=== PATIENT | male | born 1980 | race Caucasian/White ===

== ENCOUNTER 2022-04-14 16:27 | Emergency (ER) | payer MEDICARE, OTHER ==
[2022-04-14] MEDS ORDERED: SODIUM CHLORIDE 0.9% 1,000 ML IV ONE (16:34)
--- NOTE | 2022-04-14 16:44 | ED ---
General Adult HPI - General Chief complaint: Headache Stated complaint: HEADACHE Time Seen by Provider: 04/14/22 16:32 Source: patient, EMS Mode of arrival: EMS - History of Present Illness Initial comments: This is a 41-year-old male with a past medical history including previous brain cancer status post resection multiple years ago presents emergency department via EMS for a headache. The patient stated that he has had chronic intermittent headaches over last several years and was supposed to see his neurologist for follow-up approximately 3 years ago but has not done so. The patient stated that he has had headaches involving the pain going from the base of his cervical spine up across his head to his nose. The patient did state that he had an episode of this earlier today lasting approximately 3 minutes associated with some intermittent blurry vision for the same amount of time. The patient stated that this all improved the time EMS did arrive. On arrival to the emergency department, the patient stated that he denied of any acute pain or complaints but did admit to drinking all earlier today. The patient was pleasant and did not complain of any other pain. The patient is an overall poor historian however and cannot provide any further details about his past medical history. The patient was resting in bed comfortably. - Related Data Allergies Allergy/AdvReac Type Severity Reaction Status Date / Time acetaminophen [From Vicodin] Allergy Rash/Hives Verified 04/14/22 16:34 hydrocodone [From Vicodin] Allergy Rash/Hives Verified 04/14/22 16:34 Penicillins Allergy Rash/Hives Verified 04/14/22 16:34 Review of Systems ROS Statement: Those systems with pertinent positive or pertinent negative responses have been documented in the HPI. ROS Other: All systems not noted in ROS Statement are negative. General Exam Limitations: no limitations General appearance: alert, in no apparent distress Head exam: Present: atraumatic, normocephalic, normal inspection Eye exam: Present: normal appearance, PERRL Pupils: Present: normal accommodation ENT exam: Present: normal exam, normal oropharynx, mucous membranes moist Neck exam: Present: normal inspection, full ROM Respiratory exam: Present: normal lung sounds bilaterally Cardiovascular Exam: Present: regular rate, normal rhythm, normal heart sounds GI/Abdominal exam: Present: soft, normal bowel sounds Extremities exam: Present: normal inspection, full ROM Back exam: Present: normal inspection, full ROM Neurological exam: Present: alert, oriented X3, CN II-XII intact Psychiatric exam: Present: normal affect, normal mood Skin exam: Present: warm, dry Course Vital Signs 04/14/22 16:29 Temperature 98.6 F Pulse Rate 80 Respiratory 20 Rate Blood Pressure 138/92 O2 Sat by Pulse 100 Oximetry Medical Decision Making - Medical Decision Making Was pt. sent in by a medical professional or institution (ANA Luque, [employer]O LEAD, urgent care, hospital, or [facility]...) When possible be specific @ -No Did you speak to anyone other than the patient for history (EMS, parent, family, police, friend...)? What history was obtained from this source @ -No Did you review nursing and triage notes (agree or disagree)? Why? @ -I reviewed and agree with nursing and triage notes Were old charts reviewed (outside hosp., previous admission, EMS record, old EKG, old radiological studies, urgent care reports/EKG's, [facility] records)? Report findings @ -No old charts were reviewed Differential Diagnosis (chest pain, altered mental status, abdominal pain women, abdominal pain men, vaginal bleeding, weakness, fever, dyspnea, syncope, headache, dizziness, GI bleed, back pain, seizure, CVA, palpatations, mental health)? @ -Acute intracranial neoplasm, headache, NOS, migraine EKG interpreted by me (3pts min.). @ -None X-rays interpreted by me (1pt min.). @ -None done CT interpreted by me (1pt min.). @ -CT of the head was obtained and was interpreted by myself showing large left frontal lobe encephalomalacia and previous surgery. There is no acute intracranial abnormality noted. U/S interpreted by me (1pt. min.). @ -None done What testing was considered but not performed or refused? (CT, X-rays, U/S, labs)? Why? @ -None What meds were considered but not given or refused? Why? @ -None Did you discuss the management of the patient with other professionals (professionals i.e. ANA Luque, PMO LEAD, lab, RT, psych nurse, high school social studies teacher, detention deputy, teacher, parking officer, renal case manager)? Give summary @ -No Was smoking cessation discussed for >3mins.? @ -Yes Was critical care preformed (if so, how long)? @ -No Were there social determinants of health that impacted care today? How? (Homelessness, low income, unemployed, alcoholism, drug addiction, transportation, low edu. Level, literacy, decrease access to med. care, shelter, rehab)? @ -No Was there de-escalation of care discussed even if they declined (Discuss DNR or withdrawal of care, Hospice)? DNR status @ -No What co-morbidities impacted this encounter? (DM, HTN, Smoking, COPD, CAD, Cancer, CVA, ARF, Chemo, Hep., AIDS, mental health diagnosis, sleep apnea, morbid obesity)? @ -Previous brain cancer status post resection Was patient admitted / discharged? Hospital course, mention meds given and route, prescriptions, significant lab abnormalities, going to OR and other pertinent info. @ -The patient was seen and evaluated in emergency department. Physical exam, the patient was resting in bed comfortably. Vital signs were stable. All laboratory workup was negative. CT head did not show any signs of any acute abdomen maladies. On reevaluation, the patient stated that he was hungry and denied of any acute pain or headaches. The patient was deemed stable for discharge and told to follow-up with his neurologist as he was previously told however he needed to follow-up and find his information in order to find the neurosurgeon. The patient had all of his questions answered appropriately and was discharged home in stable condition. Undiagnosed new problem with uncertain prognosis? @ -No Drug Therapy requiring intensive monitoring for toxicity (Heparin, Nitro, Insulin, Cardizem)? @ -No Were any procedures done? @ -No Diagnosis/symptom? @ -Headache, NOS Acute, or Chronic, or Acute on Chronic? @ -Acute on chronic Uncomplicated (without systemic symptoms) or Complicated (systemic symptoms)? @ -Uncomplicated Side effects of treatment? @ -No Exacerbation, Progression, or Severe Exacerbation? @ -No Poses a threat to life or bodily function? How? (Chest pain, [place], [place], pneumonia, PE, COPD, DKA, ARF, appy, cholecystitis, CVA, Diverticulitis, Homicidal, Suicidal, threat to staff... and all critical care pts) @ -No - Lab Data Result diagrams: 04/14/22 16:36 04/14/22 16:36 Lab Results 04/14/22 04/14/22 Range/Units 16:36 16:36 WBC 4.6 (3.8-10.6) k/uL RBC 5.07 (4.30-5.90) m/uL Hgb 16.2 (13.0-17.5) gm/dL Hct 48.9 (39.0-53.0) % MCV 96.6 (80.0-100.0) fL MCH 31.9 (25.0-35.0) pg MCHC 33.1 (31.0-37.0) g/dL RDW 13.5 (11.5-15.5) % Plt Count 160 (150-450) k/uL MPV 8.1 Neutrophils % 61 % Lymphocytes % 26 % Monocytes % 8 % Eosinophils % 1 % Basophils % 2 % Neutrophils # 2.8 (1.3-7.7) k/uL Lymphocytes # 1.2 (1.0-4.8) k/uL Monocytes # 0.4 (0-1.0) k/uL Eosinophils # 0.1 (0-0.7) k/uL Basophils # 0.1 (0-0.2) k/uL Sodium 140 (137-145) mmol/L Potassium 4.5 (3.5-5.1) mmol/L Chloride 103 (98-107) mmol/L Carbon Dioxide 27 (22-30) mmol/L Anion Gap 10 mmol/L BUN 11 (9-20) mg/dL Creatinine 0.96 (0.66-1.25) mg/dL Est GFR (CKD-EPI)AfAm >90 (>60 ml/min/1.73 sqM) Est GFR (CKD-EPI)NonAf >90 (>60 ml/min/1.73 sqM) Glucose 83 (74-99) mg/dL Calcium 9.5 (8.4-10.2) mg/dL Magnesium 2.3 (1.6-2.3) mg/dL Total Bilirubin 0.6 (0.2-1.3) mg/dL AST 33 (17-59) U/L ALT 32 (4-49) U/L Alkaline Phosphatase 62 (38-126) U/L Total Protein 7.2 (6.3-8.2) g/dL Albumin 4.6 (3.5-5.0) g/dL Serum Alcohol 52 mg/dL Disposition Clinical Impression: Headache Disposition: HOME SELF-CARE Condition: Stable Instructions (If sedation given, give patient instructions): Acute Headache (ED) Is patient prescribed a controlled substance at d/c from ED?: No Referrals: None,Stated [Primary Care Provider] - 1-2 days Time of Disposition: 17:50
[2022-04-14 17:06] LABS: Basophils # (A) 0.1 k/uL (0-0.2); Basophils % (A) 2 %; Eosinophils # (A) 0.1 k/uL (0-0.7); Eosinophils % (A) 1 %; HCT 48.9 % (39.0-53.0); HGB 16.2 gm/dL (13.0-17.5); Lymphocytes # (A) 1.2 k/uL (1.0-4.8); Lymphocytes % (A) 26 %; MCH 31.9 pg (25.0-35.0); MCHC 33.1 g/dL (31.0-37.0); MCV 96.6 fL (80.0-100.0); Mean Platelet Volume 8.1; Monocytes # (A) 0.4 k/uL (0-1.0); Monocytes % (A) 8 %; Neutrophils # (A) 2.8 k/uL (1.3-7.7); Neutrophils % (A) 61 %; Platelet Count 160 k/uL (150-450); RBC 5.07 m/uL (4.30-5.90); RDW 13.5 % (11.5-15.5); WBC 4.6 k/uL (3.8-10.6)
[2022-04-14 17:13] LABS: ALT 32 U/L (4-49); AST 33 U/L (17-59); African American GFR (CKD) >90 (>60 ml/min/1.73 sqM); Albumin 4.6 g/dL (3.5-5.0); Alcohol 52 mg/dL; Alkaline Phosphatase 62 U/L (38-126); Anion Gap 10 mmol/L; Blood Urea Nitrogen 11 mg/dL (9-20); Calcium 9.5 mg/dL (8.4-10.2); Carbon Dioxide 27 mmol/L (22-30); Chloride 103 mmol/L (98-107); Glucose 83 mg/dL (74-99); Magnesium 2.3 mg/dL (1.6-2.3); Non-African American GFR(CKD) >90 (>60 ml/min/1.73 sqM); Potassium 4.5 mmol/L (3.5-5.1); Sodium 140 mmol/L (137-145); Total Bilirubin 0.6 mg/dL (0.2-1.3); Total Protein 7.2 g/dL (6.3-8.2)
--- NOTE | 2022-04-14 17:53 | CT ---
EXAMINATION TYPE: CT brain wo con DATE OF EXAM: 04/14/2022 COMPARISON: None HISTORY: Headache, hx brain ca CT DLP: 1143.4 mGycm Automated exposure control for dose reduction was used. Images of the brain obtained without contrast. There is 5 cm area of fluid hypodensity in the left frontal lobe bass and white matter consistent wit h encephalomalacia. There is no mass effect or midline shift. No sign of intracranial hemorrhage. Edmond tricles have fairly normal size. There is left frontal craniotomy defect. The skull base is intact. IMPRESSION: Large left frontal lobe encephalomalacia and previous surgery. No acute intracranial abnormality.
[2022-04-14 18:23] VITALS: BP 116/98; PULSE 54; RESP 19; TEMP 98.3
== END 2022-04-14 18:23 | disposition home or self-care (01) ==
LOC: EC 16:27
DX: R51.9 Headache, unspecified (principal); G93.89 Other specified disorders of brain; Z88.0 Allergy status to penicillin; Z88.5 Allergy status to narcotic agent
CPT/HCPCS: 36415; 80053; 83735; 85025; 70450; 99285; G0480; 80320

== ENCOUNTER 2022-06-21 11:45 | Emergency (ER) | payer MEDICARE, OTHER ==
--- NOTE | 2022-06-21 12:34 | ED ---
General Adult HPI - General Chief complaint: Skin/Abscess/Foreign Body Stated complaint: Facial swelling/bump Time Seen by Provider: 06/21/22 12:08 Source: patient, RN notes reviewed Mode of arrival: ambulatory Limitations: no limitations - History of Present Illness Initial comments: Patient is a pleasant 41-year-old male presenting to emergency department with concerns for left facial swelling. Onset of symptoms was 3-4 days ago. Patient does have history of occasional cysts in different spots. Patient does have discomfort associated with this. No fever. No visual change. No eye pain. - Related Data Previous Rx's Medication Instructions Recorded Cephalexin [Keflex] 500 mg PO QID #40 cap 06/21/22 Allergies Allergy/AdvReac Type Severity Reaction Status Date / Time acetaminophen [From Vicodin] Allergy Rash/Hives Verified 06/21/22 11:52 hydrocodone [From Vicodin] Allergy Rash/Hives Verified 06/21/22 11:52 Penicillins Allergy Rash/Hives Verified 06/21/22 11:52 Review of Systems ROS Statement: Those systems with pertinent positive or pertinent negative responses have been documented in the HPI. ROS Other: All systems not noted in ROS Statement are negative. Constitutional: Denies: fever Eyes: Denies: eye pain ENT: Reports: as per HPI. Denies: ear pain Respiratory: Denies: cough Cardiovascular: Denies: chest pain Endocrine: Denies: fatigue Gastrointestinal: Denies: abdominal pain Skin: Reports: as per HPI Past Medical History Past Medical History: Cancer, COPD Additional Past Medical History / Comment(s): brain tumor History of Any Multi-Drug Resistant Organisms: None Reported Additional Past Surgical History / Comment(s): brain surgery Past Psychological History: No Psychological Hx Reported Smoking Status: Current every day smoker Past Alcohol Use History: Rare Past Drug Use History: Marijuana General Exam Limitations: no limitations General appearance: alert, in no apparent distress Head exam: Present: normocephalic Eye exam: Present: normal appearance, PERRL ENT exam: Present: normal oropharynx, other (Left maxillary region near the nose with approximately 2 x 2 centimeter area of erythema and swelling with central pustule) Neck exam: Present: normal inspection Respiratory exam: Present: normal lung sounds bilaterally Cardiovascular Exam: Present: regular rate, normal rhythm GI/Abdominal exam: Present: soft. Absent: tenderness Extremities exam: Present: normal inspection Neurological exam: Present: alert Psychiatric exam: Present: normal affect, normal mood Skin exam: Present: erythema (Left medial maxillary region near the nares with central pustule) Course Vital Signs 06/21/22 11:47 Temperature 97.6 F Pulse Rate 72 Respiratory 20 Rate Blood Pressure 147/94 O2 Sat by Pulse 99 Oximetry Procedures - Incision & Drainage Consent Obtained: verbal consent Indication: Abscess Site: face Anesthetic Used: lidocaine 1% Amount (mLs): 2 I&D Cleaning Method: Betadine Scalpel Used: #11 I&D Drainage Obtained: Pus (3-4cc) Culture Obtained?: Yes Patient Tolerated Procedure: well, no complications Medical Decision Making - Medical Decision Making Was pt. sent in by a medical professional or institution (, ANA, RIM FIRE PRIMING TOOL SETTER, urgent care, hospital, or senior care...) When possible be specific @ -No Did you speak to anyone other than the patient for history (EMS, parent, family, police, friend...)? What history was obtained from this source @ -No Did you review nursing and triage notes (agree or disagree)? Why? @ -I reviewed and agree with nursing and triage notes Were old charts reviewed (outside hosp., previous admission, EMS record, old EKG, old radiological studies, urgent care reports/EKG's, senior care records)? Report findings @ -No old charts were reviewed Differential Diagnosis (chest pain, altered mental status, abdominal pain women, abdominal pain men, vaginal bleeding, weakness, fever, dyspnea, syncope, headache, dizziness, GI bleed, back pain, seizure, CVA, palpatations, mental health)? @ -not applicable EKG interpreted by me (3pts min.). @ -As above X-rays interpreted by me (1pt min.). @ -None done CT interpreted by me (1pt min.). @ -None done U/S interpreted by me (1pt. min.). @ -None done What testing was considered but not performed or refused? (CT, X-rays, U/S, labs)? Why? @ -None What meds were considered but not given or refused? Why? @ -None Did you discuss the management of the patient with other professionals (professionals i.e. , PA, R[employer] FI[employer] PRIMING TOOL SETTER, lab, RT, psych nurse, social media designer, neurological surgeon, teacher, training and development officer, caser up)? Give summary @ -No Was smoking cessation discussed for >3mins.? @ -No Was critical care preformed (if so, how long)? @ -No Were there social determinants of health that impacted care today? How? (Homelessness, low income, unemployed, alcoholism, drug addiction, transportation, low edu. Level, literacy, decrease access to med. care, care home, rehab)? @ -No Was there de-escalation of care discussed even if they declined (Discuss DNR or withdrawal of care, Hospice)? DNR status @ -No What co-morbidities impacted this encounter? (DM, HTN, Smoking, COPD, CAD, Cancer, CVA, ARF, Chemo, Hep., AIDS, mental health diagnosis, sleep apnea, morbid obesity)? @ -None Was patient admitted / discharged? Hospital course, mention meds given and route, prescriptions, significant lab abnormalities, going to OR and other pertinent info. @ -I&D with significant purulent discharge. Patient be covered with antibiotics and discharged. Recommend follow-up with ENT Undiagnosed new problem with uncertain prognosis? @ -No Drug Therapy requiring intensive monitoring for toxicity (Heparin, Nitro, Insulin, Cardizem)? @ -No Were any procedures done? @ -See above Diagnosis/symptom? @ -Facial abscess Acute, or Chronic, or Acute on Chronic? @ -Acute Uncomplicated (without systemic symptoms) or Complicated (systemic symptoms)? @ -default Side effects of treatment? @ -No Exacerbation, Progression, or Severe Exacerbation? @ -No Poses a threat to life or bodily function? How? (Chest pain, [place], [place], pneumonia, PE, COPD, DKA, ARF, appy, cholecystitis, CVA, Diverticulitis, Homicidal, Suicidal, threat to staff... and all critical care pts) @ -No Disposition Clinical Impression: Facial abscess Disposition: HOME SELF-CARE Condition: Stable Instructions (If sedation given, give patient instructions): Abscess (ED) Additional Instructions: Prescription sent to pharmacy. Please do follow-up with primary care physician in the next couple days for recheck. Also follow-up with ENT, number provided. Return for increased pain, swelling, redness, fever, worsening symptoms or any other concerns. Prescriptions: Cephalexin [Keflex] 500 mg PO QID #40 cap Is patient prescribed a controlled substance at d/c from ED?: No Referrals: Letitia Tinsley DO [Primary Care Provider] - 1-2 days Myles Hu DO [Doctor of Osteopathic Medicine] - 1-2 days Time of Disposition: 12:34
[2022-06-21 12:51] VITALS: BP 135/76; PULSE 70; RESP 16; TEMP 98
== END 2022-06-21 12:51 | disposition home or self-care (01) ==
LOC: EC 11:45
DX: L02.01 Cutaneous abscess of face (principal); J44.9 Chronic obstructive pulmonary disease, unspecified; F17.200 Nicotine dependence, unspecified, uncomplicated; F12.90 Cannabis use, unspecified, uncomplicated; Z88.0 Allergy status to penicillin; Z88.6 Allergy status to analgesic agent; Z88.5 Allergy status to narcotic agent
CPT/HCPCS: 10060; 87070; 87205; 99283

== ENCOUNTER → 2024-06-11 | Outpatient (CLI) | payer MEDICARE, OTHER ==
--- NOTE | 2024-06-11 15:18 | MR ---
EXAMINATION TYPE: MR brain wo/w con DATE OF EXAM: 06/11/2024 2:38 PM COMPARISON: None. CLINICAL INDICATION: Male, 43 years old with history of C71.9 MALIGNANT NEOPLASM OF BRAIN, UNSPECIFIE D, Brain cancer, Hx Brain tumor removed 2010 TECHNIQUE: Multiplanar and multispin-echo imaging of the brain was performed both before and after th e administration of contrast. CONTRAST: Patient received 6.5 mL intravenous Gadobutrol gadolinium contrast. FINDINGS: Left frontal craniotomy changes noted with postoperative encephalomalacia of the left frontal lobe. T he ventricles, basal cisterns and sulci overlying the cerebral are otherwise convexities are within n ormal limits. There Is enhancement at the surgical bed without evidence for mass enhancement to sugg est recurrence at this time. No new masses seen. There is no evidence for midline shift or mass effect. Acute intracranial hemorrhage or extra-axial collection is not evident. Diffusion-weighted imaging demonstrates a focus of increased signal in the genuine of the left unpaid intern al capsule and this could reflect a small vascular insult acute in nature. Correlate clinically. Following contrast administration, there is no evidence for enhancing mass. The paranasal sinuses and mastoid air cells are well-aerated. IMPRESSION: 1. Left frontal craniotomy changes noted with postoperative encephalomalacia of the left frontal lob e. 2.There Is enhancement at the surgical bed without evidence for mass enhancement to suggest recurrenc e at this time. 3.Diffusion-weighted imaging demonstrates a focus of increased signal in the genuine of the left inte rnal capsule and this could reflect a small vascular insult acute in nature. Correlate clinically. [facility], , 06/11/2024 3:16 PM
== END | disposition home or self-care (01) ==
LOC: RADMRIMAIN 13:45
PROVIDERS: ATTEND Family Medicine
DX: C71.9 Malignant neoplasm of brain, unspecified (principal); G93.89 Other specified disorders of brain; Z98.890 Other specified postprocedural states
CPT/HCPCS: 70553; A9585